=== PATIENT | male | born 1955 | race Caucasian/White ===

== ENCOUNTER 2018-10-04 09:21 | Emergency (ER) | payer OTHER ==
[~2018-10-04] VITALS: Ht 172.7 cm; Wt 102.1 kg
[2018-10-04] MEDS ORDERED: OXYMETAZOLINE 0.05% NASAL SPRAY 30ML BOTTLE. NS ONE (11:30)
[2018-10-04 12:06] LABS: BASO # 0.1 x10^3/uL (0.0-0.2); BASO % 1 % (0-3); EOS # 0.1 x10^3/uL (0.0-0.7); EOS % 2 % (0-3); HEMATOCRIT 40.3 % (39.0-53.0); HEMOGLOBIN 13.9 g/dL (13.0-17.5); LYMPH # 1.8 x10^3/uL (1.0-4.8); LYMPH % 23 % (24-48); MEAN CORPUSCULAR HEMOGLOBIN 28 pg (25-35); MEAN CORPUSCULAR HGB CONC 35 g/dL (31-37); MEAN CORPUSCULAR VOLUME 81 fL (79-100); MONO # 0.7 x10^3/uL (0.0-1.1); MONO % 8 % (0-9); NEUT # 5.2 x10^3uL (1.8-7.7); NEUT % 66 % (31-73); PLATELET COUNT 294 x10^3/uL (140-400)
[2018-10-04 12:16] LABS: PROTHROMBIN TIME PATIENT 14.2 SEC (11.7-14.0)
--- NOTE | 2018-10-04 13:08 | PHYS DOC ---
Past Medical History Past Medical History: High Cholesterol, Hypertension Past Surgical History: No Surgical History Alcohol Use: None Drug Use: None Adult General Chief Complaint Chief Complaint: NOSEBLEED HPI HPI Patient is a 62 year old male with history of hypertension, high cholesterol, who presents today complaining of nose bleeding episodes on and off since Thursday which is 2 days ago. Patient denies any trauma. Denies being on any blood thinners. Review of Systems Review of Systems Constitutional: Denies fever or chills [] Eyes: Denies change in visual acuity, redness, or eye pain [] HENT: Reports nose bleeding episodes. Denies nasal congestion or sore throat [] Respiratory: Denies cough or shortness of breath [] Cardiovascular: No additional information not addressed in HPI [] GI: Denies abdominal pain, nausea, vomiting, bloody stools or diarrhea [] : Denies dysuria or hematuria [] Musculoskeletal: Denies back pain or joint pain [] Integument: Denies rash or skin lesions [] Neurologic: Denies headache, focal weakness or sensory changes [] All other systems were reviewed and found to be within normal limits, except as documented in this note. Current Medications Current Medications Current Medications Medications (Trade) Dose Ordered Sig/Cassie Start Time Stop Time Status Last Admin Dose Admin Oxymetazoline HCl (Afrin) 2 spray 1X ONCE 10/04/18 11:30 10/04/18 11:31 DC 10/04/18 11:47 2 SPRAY Allergies Allergies Allergies Coded Allergies Type Severity Reaction Last Updated Verified No Known Drug Allergies 10/04/18 No Physical Exam Physical Exam Constitutional: Well developed, well nourished, no acute distress, non-toxic appearance. [] HENT: Normocephalic, atraumatic, bilateral external ears normal, oropharynx moist, no oral exudates, Bilateral nasal cavities with dried up crusty blood clots on the anterior aspect. No active bleeding. Eyes: PERRLA, EOMI, conjunctiva normal, no discharge. [] Neck: Normal range of motion, no tenderness, supple, no stridor. [] Cardiovascular:Heart rate regular rhythm, no murmur [] Lungs & Thorax: Bilateral breath sounds clear to auscultation [] Abdomen: Bowel sounds normal, soft, no tenderness, no masses, no pulsatile masses. [] Skin: Warm, dry, no erythema, no rash. [] Back: No tenderness, no CVA tenderness. [] Extremities: No tenderness, no cyanosis, no clubbing, ROM intact, no edema. [] Neurologic: Alert and oriented X 3, normal motor function, normal sensory function, no focal deficits noted. [] Psychologic: Affect normal, judgement normal, mood normal. [] Current Patient Data Vital Signs Vital Signs Date Time Temp Pulse Resp B/P (MAP) Pulse Ox O2 Delivery O2 Flow Rate FiO2 10/04/18 09:53 98.6 93 17 147/92 (110) 97 Room Air 98.6 Lab Values Laboratory Tests Test 10/04/18 11:45 White Blood Count 8.0 x10^3/uL (4.0-11.0) Red Blood Count 5.00 x10^6/uL (4.30-5.70) Hemoglobin 13.9 g/dL (13.0-17.5) Hematocrit 40.3 % (39.0-53.0) Mean Corpuscular Volume 81 fL (79-100) Mean Corpuscular Hemoglobin 28 pg (25-35) Mean Corpuscular Hemoglobin Concent 35 g/dL (31-37) Red Cell Distribution Width 15.0 % (11.5-14.5) H Platelet Count 294 x10^3/uL (140-400) Neutrophils (%) (Auto) 66 % (31-73) Lymphocytes (%) (Auto) 23 % (24-48) L Monocytes (%) (Auto) 8 % (0-9) Eosinophils (%) (Auto) 2 % (0-3) Basophils (%) (Auto) 1 % (0-3) Neutrophils # (Auto) 5.2 x10^3uL (1.8-7.7) Lymphocytes # (Auto) 1.8 x10^3/uL (1.0-4.8) Monocytes # (Auto) 0.7 x10^3/uL (0.0-1.1) Eosinophils # (Auto) 0.1 x10^3/uL (0.0-0.7) Basophils # (Auto) 0.1 x10^3/uL (0.0-0.2) Prothrombin Time 14.2 SEC (11.7-14.0) H Prothrombin Time INR 1.1 (0.8-1.1) PTT 30 SEC (24-38) Laboratory Tests 10/04/18 11:45 EKG EKG [] Radiology/Procedures Radiology/Procedures [] Course & Med Decision Making Course & Med Decision Making Pertinent Labs and Imaging studies reviewed. (See chart for details) This is a 62-year-old male patient presenting to the ED today with episodes of nose bleeding since Thursday. Patient has a history of hypertension, blood pressure 147/92 on arrival to the ED. No trauma. Patient was not actively bleeding on arrival to the ED. After sitting in the ED for a few minutes he started bleeding. Afrin was sprayed in his nasal cavities. Nasal clamps were also used. CBC with a normal hemoglobin and hematocrit, PT 14.2, INR 1.1, APTT 30 13:10 patient's neighbor an RN in this hospital, she got patient an appointment with the ENT today at 2 PM. Bleeding has slowed down tremendously. Patient is heading to ENT's office now to see Dr. Scanlon. Tara Disclaimer Tara Disclaimer This electronic medical record was generated, in whole or in part, using a voice recognition dictation system. Departure Departure Impression: Primary Impression: Epistaxis Disposition: HOME, SELF-CARE Condition: STABLE Referrals: NO PCP (PCP) RENEE SCANLON MD Please go to her office today at 2 pm Patient Instructions: Nosebleed, [id number] Additional Instructions: You were evaluated in the emergency room for nose bleeding. You were referred to Dr. Renee Scanlon ENT. Please head to the office right now. ZECHARIAH MORGAN APRN Oct 04, 2018 13:08
[2018-10-04 13:15] VITALS: BP 129/77
== END 2018-10-04 13:17 | disposition home or self-care (01) ==
LOC: ER 09:21
DX: R04.0 Epistaxis (principal); E78.00 Pure hypercholesterolemia, unspecified; I10 Essential (primary) hypertension
CPT/HCPCS: 36415; 85025; 85610; 85730; 99283